=== PATIENT | female | born 1970 | race Caucasian/White ===

== ENCOUNTER 2017-11-09 12:05 | Emergency (ER) | payer OTHER ==
[2017-11-09 13:31] LABS: URINE BLOOD (Dip) POC 3+ (NEGATIVE); URINE GLUCOSE (Dip) POC Negative (NEGATIVE); URINE KETONES (Dip) POC Negative (NEGATIVE); URINE LEUKOCYTE EST (Dip) POC 2+ (NEGATIVE); URINE NITRITE (Dip) POC Positive (NEGATIVE); URINE TOTAL PROTEIN POC 1+ (NEGATIVE)
== END 2017-11-09 14:04 | disposition home or self-care (01) ==
LOC: FTE 12:05
DX: R30.0 Dysuria (principal)
CPT/HCPCS: 81003; 81025; 99283

== ENCOUNTER 2018-06-17 11:41 | Emergency (ER) | payer OTHER ==
[2018-06-17] MEDS: CEFTRIAXONE 1 GM INJ IM (12:17)
[2018-06-17] MEDS: LIDOCAINE 1% (MPF) 5 ML VIAL INJ (12:17)
== END 2018-06-17 12:45 | disposition home or self-care (01) ==
LOC: FTE 11:41
DX: R05 Cough (principal)
CPT/HCPCS: 96372; 99284-25